=== PATIENT | male | born 1975 | race Caucasian/White ===

== ENCOUNTER 2020-08-22 05:55 | Day surgery (SDC) | payer OTHER, SELFPAY ==
--- NOTE | 2020-08-21 09:42 | EKG12_ITS ---
Test Reason : PRE SURGERY Blood Pressure : / mmHG Vent. Rate : 092 BPM Atrial Rate : 092 BPM P-R Int : 150 ms QRS Dur : 092 ms QT Int : 348 ms P-R-T Axes : 053 042 011 degrees QTc Int : 430 ms Normal sinus rhythm Normal ECG Confirmed by TERRENCE SHI, GUILLERMINA ([id number]), international editorial producer GEOFF RIVAS ([id number]) on 08/22/2020 9:27:54 AM Referred By: Marcello Irvin Confirmed By:GUILLERMINA OCAMPO MD
[2020-08-22] VITALS (8 sets, daily range): BP systolic 141–163; BP diastolic 85–105; PULSE 86–104; RESP 16–18; TEMP 36.4–37.1; O2SAT 93–100; BMI 36.8
[2020-08-22] MEDS: Lactated Ringers 1,000 ML 100 ML IV (06:50)
--- NOTE | 2020-08-22 07:45 | RAD_ITS ---
STUDY: X-RAY - RIGHT WRIST REASON FOR EXAM: Male, 45 years old. Right wrist fx, orif TECHNIQUE: 5 intraoperative view(s) of the wrist were obtained. COMPARISON: None. FINDINGS: Intraoperative imaging provided for open reduction and internal fixation of the distal radial fracture. There is good alignment. RAD/Wrist 2 Views IMPRESSION: Intraoperative imaging provided for open reduction and internal fixation of the distal radial fracture. There is good alignment. Electronically Signed: Alessandro Branch MD at 15:20 EST , Service support ,
--- NOTE | 2020-08-22 09:06 | PRO.PCM_ITS ---
Procedure Report Date of Procedure: 08/22/20 Preoperative diagnosis: Right distal radius fracture comminuted Colles', 4 part Preoperative diagnosis: Same Operation: Open reduction internal fixation right distal radius fracture Surgeon: Dr. Marcello Irvin Insights Manager: Julius HOKO Anesthesia general Anesthesiologist: Dr. Hermosillo Medications: Ancef Complications: None EBL: Less than 50 Indications for surgery: Please refer to dictated history and physical exam wet process miller head assistant was vital throughout the entire case. She help with patient positioning, reduction of fracture, maintenance of fracture reduction, exposure, plate and screw application and insertion, wound closure. Also with bandage and splint application. Without business development assistant surgical time would have been increased. Surgical outcome could have been less optimal. Procedure: After obtaining appropriate informed consent patient was taken to the operating room. Appropriate timeout was performed. Well-padded tourniquet applied to the operative upper arm. 3 gm Ancef given IV. SCDs on lower extremities. Patient placed under general anesthesia. Reduction was attempted. Adequate closed reduction could not be obtained or maintained. Operative upper extremity was prepped padded draped in usual orthopedic sterile fashion for the procedure. Tourniquet was applied to 250 mmHg after the limb was exsanguinated. Volar approach was carried out longitudinally just over the FCR tendon. Careful dissection through skin subcutaneous tissue brought us down onto the FCR tendon. We took the FCR tendon ulnarly and the radial artery and soft tissues radially. This brought us down onto the pronator quadratus. This was sharply dissected off the bone radially. Fracture site was identified. Irrigated. Traction and manipulation with the help of the tax assistant, fracture was nearly anatomically reduced. Radial styloid based K wire was placed to help maintain reduction .its position was verified under AP oblique and lateral fluoroscopic imaging showing good reduction. Volar AccuMed, Accu lock wide R VDR plate applied. And verified radiographically. Held in place with 2 K wires. 10? kickstand use proximally. I placed a distal nonlocking screw to compress the plate against the bone. We filled the distal row with 2.3 mm locking screws in the plate under standard technique. One radial styloid locking screw was also placed. we then removed the kickstand and applied the plate to the bone proximally and held it with a no nlocking screw 3.5 mm. X-ray taken AP lateral and oblique showing very nice reduction and placement of the hardware. Length verified. 2 further nonlocking screws were placed in the proximal plate. I removed the previously placed nonlocking screw in the distal plate with the appropriate length locking screw. We verified our reduction under multiple x-ray views multiple, many of which were saved. Screw guide system for the plate removed. Wound was irrigated. Tourniquet let down. Bleeding controlled with the Bovie. No undue bleeding noted. Pronator quadratus repaired with 2-0 Vicryl over the plate. Skin repaired with interrupted inverted 2-0 Vicryl. Skin prep and Steri-Strips applied. Well-padded volar splint and dorsal splint applied. Sling applied. he was awoken from her anesthetic and transferred back to room bed in recovery room in satisfactory condition. Patient will be in a splint or brace for 6 weeks, starting range of motion of the wrist at 3 weeks assuming continued good x-ray findings. he will start finger motion immediately postoperatively This note was generated with [employer] dictation software. It may contain incorrect words, spelling, and punctuation that were not noted in checking the note before signing.
[2020-08-22] MEDS: Acetaminophen 500 MG Tablet 1000 MG PO (10:02)
[2020-08-22] MEDS: oxyCODONE 5 MG Tablet 10 MG PO (10:03)
== END 2020-08-22 11:17 | disposition home or self-care (01) ==
LOC: SDC 05:56 → AC 05:56
PROVIDERS: PCP Family Medicine; Referring Provider Orthopaedic Surgery; Visit Provider Orthopaedic Surgery
PROC: (CPT 25607; principal; 2020-08-22 07:15)
DX: S52.531A Colles' fracture of right radius, initial encounter for closed fracture (principal); W00.0XXA Fall on same level due to ice and snow, initial encounter; Y93.9 Activity, unspecified; Y92.89 Other specified places as the place of occurrence of the external cause; Y99.9 Unspecified external cause status
CPT/HCPCS: 01830; 25607; 64417; 73100; 76000; 87426; 93005; C1713; C9803; J7120; J2405